=== PATIENT | male | born 1985 | race Caucasian/White ===

== ENCOUNTER 2017-11-03 20:06 | Emergency (ER) | payer SELFPAY ==
[2017-11-03 20:09] VITALS: BP 134/86
[2017-11-03] MEDS ORDERED: MEDROL 4MG DOSPA4 MG PO (20:58)
[2017-11-03 21:03] VITALS: PULSE 70; TEMP 97.4
== END 2017-11-03 21:03 | disposition home or self-care (01) ==
LOC: COL.ER 20:06
DX: J40 Bronchitis, not specified as acute or chronic (principal); F17.210 Nicotine dependence, cigarettes, uncomplicated; Z88.5 Allergy status to narcotic agent